=== PATIENT | male | born 1990 | race African-American/Black ===

== ENCOUNTER 2021-04-13 20:34 | Observation (INO) | payer SELFPAY ==
[~2021-04-13] VITALS: Ht 200.7 cm; Wt 93.9 kg
[2021-04-13 23:07] LABS: HEMOGLOBIN 13.1 gm/dl (14.0-17.5); RED BLOOD COUNT 4.34 M/UL (4.20-5.50)
[2021-04-13 23:36] LABS: BUN/CREATININE RATIO 16 (0-10)
[2021-04-14 00:47] LABS: CORONAVIRUS HKU1 Not Detected (Not Detectd); CORONAVIRUS NL63 Not Detected (Not Detectd); CORONAVIRUS OC43 Not Detected (Not Detectd); CORONOAVIRUS 229E Not Detected (Not Detectd); HUMAN METAPNEUMOVIRUS Not Detected (Not Detectd); HUMAN RHINOVIRUS/ENTEROVIRUS Not Detected (Not Detectd); INFLUENZA A Not Detected (Not Detectd); INFLUENZA B Not Detected (Not Detectd); PARAINFLUENZA VIRUS 1 Not Detected (Not Detectd); PARAINFLUENZA VIRUS 2 Not Detected (Not Detectd); PARAINFLUENZA VIRUS 3 Not Detected (Not Detectd)
[2021-04-14 00:48] LABS: BORDETELLA PARAPERTUSSIS Not Detected (Not Detectd); BORDETELLA PERTUSSIS Not Detected (Not Detectd); CHLAMYDIA PNEUMONIAE Not Detected (Not Detectd); MYCOPLASMA PNEUMONIAE Not Detected (Not Detectd); PARAINFLUENZA VIRUS 4 Not Detected (Not Detectd); RESPIRATORY SYNCYTIAL VIRUS Not Detected (Not Detectd)
[2021-04-14 02:00] LABS: SARS-CoV-2 NOT DETECTED (Not Detectd)
[2021-04-14 08:19] LABS: HEMOGLOBIN 12.8 gm/dl (14.0-17.5); RED BLOOD COUNT 4.23 M/UL (4.20-5.50)
[2021-04-14 09:17] LABS: BUN/CREATININE RATIO 16 (0-10)
[2021-04-15 07:23] LABS: HEMOGLOBIN 11.1 gm/dl (14.0-17.5); RED BLOOD COUNT 3.89 M/UL (4.20-5.50); WHITE BLOOD COUNT 5.5 K/UL (4.5-11.0)
[2021-04-15 08:15] LABS: BUN/CREATININE RATIO 19 (0-10)
[2021-04-15 10:12] LABS: HBSAG SCREEN Negative (Negative); HEP A AB, IGM Negative (Negative); HEP B CORE AB, IGM Negative (Negative); HEP C VIRUS AB <0.1 (0.0-0.9)
[2021-04-16 15:12] LABS: RPR Reactive (Non Reactive); TREPONEMA PALLIDUM ANTIBODIES Non Reactive (Non Reactive)
[2021-04-16 22:06] LABS: CHLAMYDIA TRACHOMATIS, NAA Negative (Negative); NEISSERIA GONORRHOEAE, NAA Negative (Negative)
[2021-04-17 16:11] LABS: HIV 1 AB Positive (Negative); HIV 2 AB Indeterminate (Negative); HIV SCREEN 4TH GENERATION WRFX Reactive (Non Reactive); INTERPRETATION: HIV-1 Positive (.)
== END 2021-04-15 09:52 | disposition home or self-care (01) ==
LOC: ER1 20:34 → CDU 04-14 01:14 → M/S 04-14 13:05
PROVIDERS: Emergency Medicine; Internal Medicine; ADMIT Internal Medicine
DX: M13.0 Polyarthritis, unspecified (principal); H10.9 Unspecified conjunctivitis; N17.9 Acute kidney failure, unspecified; Z88.1 Allergy status to other antibiotic agents; Z88.2 Allergy status to sulfonamides
CPT/HCPCS: 36415; 71045; 80048; 80053; 80074; 80307; 81001; 82550; 82553; 83605; 83735; 83874; 84100; 84439; 84443; 84484; 85025; 85027; 85610; 85652; 85730; 86038; 86060; 86140; 86592; 86593; 86618; 86757; 86780; 87040; 87081; 87086; 87389; 87633; 87880; 96365; 96374; 96375; 96376; 99284; G0378; J0696; J1650; J2930; J7030